=== PATIENT | male | born 1985 | race Caucasian/White ===

== ENCOUNTER 2024-10-03 21:47 | Emergency (ER) | payer OTHER, SELFPAY ==
[2024-10-03 21:56] VITALS: BP 120/82; PULSE 78; O2SAT 99
[2024-10-03 21:59] VITALS: BP 120/82; PULSE 73; RESP 14; TEMP 36.5; O2SAT 99; BMI 20.7
[2024-10-03 22:00] VITALS: BP 110/70; PULSE 72; O2SAT 98
--- NOTE | 2024-10-03 22:13 | ED.MALEGU ---
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 Patient was busy this morning and only had coffee and started to develop dysuria, urgency, frequency, but no back pain, fever, chills, bodyaches, nausea, vomiting, abdominal pain, penile discharge or testicular pain. Other than what is stated 14 point review of system is negative. Related Data Previous Rx's Medication Instructions Recorded sulfamethoxazole 800 1 tab PO BID #10 tabs 10/03/24 mg-trimethoprim 160 mg tablet (Bactrim DS) Allergies Allergy/AdvReac Type Severity Reaction Status Date / Time No Known Drug Allergies Allergy Verified 10/03/24 22:18 Review of Systems Review of Systems ROS Unobtainable: All systems reviewed & are unremarkable except as noted in HPI and below Patient History Social History Smoking Status: Never smoker Smoking Status: Never smoker Exam Narrative Exam Narrative: GENERAL: [39] year old patient appears stated age. Well-developed patient, in mild distress. HEAD: Atraumatic. Normocephalic. EYES: Pupils equal round and reactive. Extraocular motions intact. No scleral icterus. No injection or drainage. ENT: Nose without bleeding, purulent drainage. Throat without erythema, tonsillar hypertrophy or exudate. Airway patent. NECK: Trachea midline. Non tender CARDIOVASCULAR: Regular rate and rhythm without murmurs, gallops, or rubs. RESPIRATORY: Clear to auscultation. Breath sounds equal bilaterally. No wheezes, rales, or rhonchi. GASTROINTESTINAL: Abdomen soft, non-tender, nondistended. EXTREMITIES: No edema or joint tenderness. BACK: Nontender without deformity or crepitance. No flank tenderness. NEURO: AOx3. GCS 15 SKIN: No rash or erythema of visible areas Initial Vital Signs Initial Vital Signs: Vital Signs Pulse Rate 78 10/03/24 21:56 Blood Pressure 120/82 10/03/24 21:56 Pulse Oximetry 99 10/03/24 21:56 Course Orders Ordered: ED Orders 10/03/24 21:55 Urine Culture Stat Urine Microscopic Stat Vital Signs Vital signs: Vital Signs - 8 hr 10/03/24 21:56 10/03/24 21:56 10/03/24 21:59 Temperature 97.7 F Pulse Rate 78 73 Respiratory Rate 14 Blood Pressure 120/82 120/82 Pulse Oximetry 99 99 Oxygen Delivery Method Room Air 10/03/24 22:00 10/03/24 22:00 Temperature Pulse Rate 72 Respiratory Rate Blood Pressure 110/70 Pulse Oximetry 98 Oxygen Delivery Method Room Air MDM - Male Genitourinary Lab Data Labs: Urine Dip Bedside Urine Glucose Negative Bedside Urine Bilirubin - Negative Bedside Urine Ketone - Negative Urine Specific [place] 1.005 Bedside Urine Occult Blood + Bedside Urine pH 6.0 Bedside Urine Protein - Negative Bedside Urine Urobilinogen - Negative Bedside Urine Nitrite - Negative Bedside Urine Leukocytes +++ 500 Esterase MDM Narrative Medical decision making narrative: Vital signs, nurse triage note, medication list, previous ER visits and all imaging modalities all reviewed. Patient given Bactrim and Pyridium here. DC home on Bactrim rx. Differential diagnosis includes UTI STD kidney infection. Discharge Plan Departure Patient Disposition: Home Clinical Impression: Urinary tract infection Instructions: DI for Urinary Tract Infection (UTI) Activity Restrictions/Additional Instructions: Return with new or worsening symptoms. Take Medicine as directed and keep hydrated Prescriptions: New sulfamethoxazole-trimethoprim [Bactrim DS] 800-160 mg tablet 1 tab PO BID Qty: 10 0RF Stand Alone Forms: Patient Portal/API/Survey
[2024-10-03] MEDS: PHENAZOPYRIDINE 100 MG TABLET 200 MG PO (22:24)
[2024-10-03] MEDS: TRIMETH/SULFA 160/800 (DS) TABLET 1 TAB PO (22:24)
[2024-10-03 22:26] VITALS: BP 106/68; PULSE 80; RESP 14; TEMP 36.6; O2SAT 98
[2024-10-03 22:28] LABS: Bacteria Urine Few (2-10); RBC Urine 0-1/HPF (0-5/HPF); Squamous Epithelial Cell Urine 0-1 /HPF (0-5/HPF); Urine Volume 10mL (spun); WBC Urine 10-30/HPF (0-5/HPF)
[2024-10-03 22:29] LABS: Culture Indicated Urine Cult Not Indicated
== END 2024-10-03 22:29 | disposition home or self-care (01) ==
PROVIDERS: Emergency Provider Family Medicine
DX: N39.0 Urinary tract infection, site not specified (principal)
CPT/HCPCS: 81003; 81015; 87077; 87086; 87186; 99283